=== PATIENT | male | born 1960 | race Caucasian/White ===

== ENCOUNTER 2021-12-17 10:09 | Inpatient (IN) | payer OTHER, MEDICAID ==
[~2021-12-17] VITALS: Ht 175.3 cm; Wt 119.0 kg
[~2021-12-17 10:09] MED LIST: BENA5TAB9 PO; DICL50TA2 PO; GABA-339 PO
[2021-12-17 12:02] LABS: Basophils # (auto) 0 10 ^3/uL (0-0.2); Basophils % (auto) 0.3 % (0.0-2.0); Eosinophils # (auto) 0 10 ^3/uL (0-0.8); Eosinophils % (auto) 0.5 % (0.0-7.0); Hematocrit 42.4 % (41.0-53.0); Hemoglobin 14.2 g/dL (13.5-17.5); Lymphocytes # (auto) 0.6 10 ^3/uL (0.4-5.4); Lymphocytes % (auto) 15.4 % (10.0-50.0); Mean Corpuscular Hgb Conc. 33.5 g/dL (32.0-36.0); Mean Corpuscular Volume 86.8 fL (80.0-100.0); Monocytes # (auto) 0.6 10 ^3/uL (0-1.3); Monocytes % (auto) 15.9 % (0.0-12.0); Neutrophils # (auto) 2.7 10 ^3/uL (1.6-8.6); Neutrophils % (auto) 67.9 % (37.0-80.0); Nucleated Red Blood Cells % 0.1 %; Red Blood Cells 4.88 10^6/uL (4.5-5.90); Red Cell Distribution Width 13.8 % (11.8-14.3)
[2021-12-17 12:08] LABS: Calcium 8.6 mg/dL (8.5-10.1)
[2021-12-17 12:12] LABS: BUN/Creatinine Ratio 17.2; Bilirubin, Total 0.6 mg/dL (0.2-1.0); Total Protein 6.7 g/dL (6.4-8.2)
[2021-12-17] MEDS ORDERED: cefTRIAXone 1GM/50ML D5W 50 ML IV ONE (13:45)
[2021-12-17] MEDS ORDERED: AZITHROMYCIN 250 MG TAB PO ONE (13:45)
[2021-12-17] MEDS ORDERED: ACETAMINOPHEN 325 MG TAB PO PRN (18:45)
[2021-12-17] MEDS ORDERED: DOCUSATE SOD 100 MG CAP PO PRN (18:45)
[2021-12-17] MEDS ORDERED: NITROGLYCERIN 0.4 MG SL TAB SL PRN (18:45)
[2021-12-17] MEDS ORDERED: LORazepam 0.5 MG TAB PO PRN (18:45)
[2021-12-17] MEDS ORDERED: ALBUTEROL SULF HFA 90MCG INH 200DOSE IN ONE (18:45)
[2021-12-17] MEDS ORDERED: HYDROcodone-ACET 5/325MG TAB PO PRN (18:45)
[2021-12-17] MEDS ORDERED: MORPHINE SULFATE INJECTION 2 MG/ML SYRG IV PRN (18:45)
[2021-12-17] MEDS ORDERED: REMDESIVIR PER PHARMACY 0 ML IV SCH (18:45)
[2021-12-17] MEDS ORDERED: DexAMETHasone SOD PHOS 10MG/1ML VIAL INJ IV ONE (18:45)
[2021-12-17] MEDS: ALBUTEROL SULF HFA 90MCG INH 200DOSE IN SCH (20:13)
[2021-12-17] MEDS ORDERED: REMDESIVIR 200 MG in NS 210ml LOADING DOSE ADULT IV ONE (22:00)
[2021-12-17] MEDS: GABAPENTIN 300 MG CAP PO SCH (22:30)
[2021-12-17] MEDS: ASCORBIC ACID 500 MG TAB PO SCH (22:30)
[2021-12-18] VITALS (7 sets, daily range): BP systolic 106–132; BP diastolic 62–89
[2021-12-18] MEDS ORDERED: ASPI-543 PO (05:20)
[2021-12-18] MEDS ORDERED: OMEG100078 PO (05:20)
[2021-12-18] MEDS ORDERED: FLUT1AER7 IN (05:20)
[2021-12-18] MEDS ORDERED: FURO40TA4 PO (05:20)
[2021-12-18] MEDS ORDERED: CLOP75TA70 PO (05:20)
[2021-12-18] MEDS ORDERED: CARV12.544 PO (05:20)
[2021-12-18] MEDS ORDERED: ATOR40TA52 PO (05:20)
[2021-12-18] MEDS ORDERED: CHOL20007 PO (05:20)
[2021-12-18] MEDS ORDERED: POTA10TA51 PO (05:20)
[2021-12-18] MEDS ORDERED: ALBU108A5 IN (05:20)
[2021-12-18] MEDS: GABAPENTIN 300 MG CAP PO SCH ×3 (05:44→21:31)
[2021-12-18] MEDS: ALBUTEROL SULF HFA 90MCG INH 200DOSE IN SCH ×3 (06:30→19:54)
[2021-12-18 07:01] LABS: Basophils # (auto) 0 10 ^3/uL (0-0.2); Basophils % (auto) 0.3 % (0.0-2.0); Eosinophils # (auto) 0 10 ^3/uL (0-0.8); Hematocrit 43.6 % (41.0-53.0); Hemoglobin 14.1 g/dL (13.5-17.5); Lymphocytes # (auto) 0.4 10 ^3/uL (0.4-5.4); Lymphocytes % (auto) 17.6 % (10.0-50.0); Mean Corpuscular Hemoglobin 28.5 pg (28.0-32.0); Mean Corpuscular Hgb Conc. 32.4 g/dL (32.0-36.0); Monocytes # (auto) 0.3 10 ^3/uL (0-1.3); Monocytes % (auto) 12.4 % (0.0-12.0); Neutrophils # (auto) 1.8 10 ^3/uL (1.6-8.6); Neutrophils % (auto) 69.7 % (37.0-80.0); Nucleated Red Blood Cells % 0.2 %; Red Blood Cells 4.95 10^6/uL (4.5-5.90); Red Cell Distribution Width 13.7 % (11.8-14.3); White Blood Cell 2.6 10^3/uL (4.4-10.8)
[2021-12-18 07:24] LABS: Potassium 4.3 mmol/L (3.5-5.1)
[2021-12-18 07:34] LABS: Albumin 3.1 g/dL (3.4-5.0); BUN/Creatinine Ratio 17.3; Bilirubin, Total 0.3 mg/dL (0.2-1.0); Calcium 8.8 mg/dL (8.5-10.1); Total Protein 6.9 g/dL (6.4-8.2)
[2021-12-18] MEDS: DexAMETHasone SOD PHOS 10MG/1ML VIAL INJ IV SCH (10:51)
[2021-12-18] MEDS: ASCORBIC ACID 500 MG TAB PO SCH ×2 (10:51→21:31)
[2021-12-18] MEDS: PANTOPRAZOLE 40 MG TAB PO SCH (10:51)
[2021-12-18] MEDS: CHOLECALCIFEROL (VITD3) 2,000 UNIT CAP/TAB PO SCH (10:52)
[2021-12-18] MEDS: ENOXAPARIN SOD 40 MG/0.4 ML SYRINGE SC SCH (10:52)
[2021-12-18] MEDS: ZINC SULFATE 220mg CAP or TAB PO SCH (11:12)
[2021-12-18] MEDS: REMDESIVIR 100mg 100 MG in SODIUM CHL 0.9% 230 ML IV SCH (16:12)
[2021-12-18] MEDS: cefTRIAXone 1GM/50ML D5W 50 ML IV SCH (21:00)
[2021-12-18] MEDS: AZITHROMYCIN 500MG/ 250ML 250 ML IV SCH (22:00)
[2021-12-19 04:41] VITALS: BP 108/65
[2021-12-19] MEDS: GABAPENTIN 300 MG CAP PO SCH ×3 (05:59→21:38)
[2021-12-19 06:02] LABS: Basophils # (auto) 0 10 ^3/uL (0-0.2); Basophils % (auto) 0.4 % (0.0-2.0); Eosinophils # (auto) 0 10 ^3/uL (0-0.8); Hematocrit 41.1 % (41.0-53.0); Hemoglobin 13.8 g/dL (13.5-17.5); Lymphocytes # (auto) 0.7 10 ^3/uL (0.4-5.4); Lymphocytes % (auto) 11.3 % (10.0-50.0); Mean Corpuscular Hemoglobin 29.3 pg (28.0-32.0); Mean Corpuscular Hgb Conc. 33.6 g/dL (32.0-36.0); Mean Corpuscular Volume 87.3 fL (80.0-100.0); Monocytes # (auto) 0.6 10 ^3/uL (0-1.3); Monocytes % (auto) 10.4 % (0.0-12.0); Neutrophils # (auto) 4.8 10 ^3/uL (1.6-8.6); Neutrophils % (auto) 77.9 % (37.0-80.0); Nucleated Red Blood Cells % 0.1 %; Red Blood Cells 4.71 10^6/uL (4.5-5.90); White Blood Cell 6.2 10^3/uL (4.4-10.8)
[2021-12-19 06:18] LABS: Albumin 2.7 g/dL (3.4-5.0); Calcium 8.9 mg/dL (8.5-10.1); Potassium 4.4 mmol/L (3.5-5.1)
[2021-12-19 06:22] LABS: Bilirubin, Total 0.2 mg/dL (0.2-1.0); Total Protein 6.3 g/dL (6.4-8.2)
[2021-12-19 09:00] VITALS: BP 112/63
[2021-12-19] MEDS: ZINC SULFATE 220mg CAP or TAB PO SCH (09:07)
[2021-12-19] MEDS: ENOXAPARIN SOD 40 MG/0.4 ML SYRINGE SC SCH (09:07)
[2021-12-19] MEDS: ASCORBIC ACID 500 MG TAB PO SCH ×2 (09:07→21:38)
[2021-12-19] MEDS: DexAMETHasone SOD PHOS 10MG/1ML VIAL INJ IV SCH (09:07)
[2021-12-19] MEDS: PANTOPRAZOLE 40 MG TAB PO SCH (09:07)
[2021-12-19] MEDS: CHOLECALCIFEROL (VITD3) 2,000 UNIT CAP/TAB PO SCH (09:07)
[2021-12-19] MEDS: ALBUTEROL SULF HFA 90MCG INH 200DOSE IN SCH ×2 (10:03→19:59)
[2021-12-19 13:00] VITALS: BP 109/77
[2021-12-19] MEDS: REMDESIVIR 100mg 100 MG in SODIUM CHL 0.9% 230 ML IV SCH (15:09)
[2021-12-19 17:00] VITALS: BP 135/85
[2021-12-19] MEDS: cefTRIAXone 1GM/50ML D5W 50 ML IV SCH (20:30)
[2021-12-19] MEDS: AZITHROMYCIN 500MG/ 250ML 250 ML IV SCH (21:38)
[2021-12-19 22:00] VITALS: BP 129/71
[2021-12-20 04:38] VITALS: BP 111/65
[2021-12-20] MEDS: GABAPENTIN 300 MG CAP PO SCH ×2 (05:45→14:02)
[2021-12-20 06:50] LABS: Basophils # (auto) 0 10 ^3/uL (0-0.2); Basophils % (auto) 0.1 % (0.0-2.0); Eosinophils # (auto) 0 10 ^3/uL (0-0.8); Eosinophils % (auto) 0.1 % (0.0-7.0); Hematocrit 40.5 % (41.0-53.0); Hemoglobin 13.1 g/dL (13.5-17.5); Lymphocytes # (auto) 1.1 10 ^3/uL (0.4-5.4); Lymphocytes % (auto) 15.5 % (10.0-50.0); Mean Corpuscular Hemoglobin 28.4 pg (28.0-32.0); Mean Corpuscular Hgb Conc. 32.5 g/dL (32.0-36.0); Mean Corpuscular Volume 87.5 fL (80.0-100.0); Monocytes # (auto) 0.8 10 ^3/uL (0-1.3); Monocytes % (auto) 10.5 % (0.0-12.0); Neutrophils # (auto) 5.3 10 ^3/uL (1.6-8.6); Neutrophils % (auto) 73.8 % (37.0-80.0); Nucleated Red Blood Cells % 0.1 %; Red Blood Cells 4.62 10^6/uL (4.5-5.90); Red Cell Distribution Width 14.2 % (11.8-14.3); White Blood Cell 7.2 10^3/uL (4.4-10.8)
[2021-12-20 06:52] LABS: Potassium 4.3 mmol/L (3.5-5.1)
[2021-12-20 07:02] LABS: Albumin 2.8 g/dL (3.4-5.0); BUN/Creatinine Ratio 29.2; Bilirubin, Total 0.2 mg/dL (0.2-1.0); Calcium 8.2 mg/dL (8.5-10.1); Total Protein 5.8 g/dL (6.4-8.2)
[2021-12-20] MEDS: ALBUTEROL SULF HFA 90MCG INH 200DOSE IN SCH (07:49)
[2021-12-20] MEDS: DexAMETHasone SOD PHOS 10MG/1ML VIAL INJ IV SCH (08:23)
[2021-12-20] MEDS: PANTOPRAZOLE 40 MG TAB PO SCH (08:23)
[2021-12-20] MEDS: ZINC SULFATE 220mg CAP or TAB PO SCH (08:23)
[2021-12-20] MEDS: CHOLECALCIFEROL (VITD3) 2,000 UNIT CAP/TAB PO SCH (08:24)
[2021-12-20] MEDS: ASCORBIC ACID 500 MG TAB PO SCH (08:24)
[2021-12-20] MEDS: ENOXAPARIN SOD 40 MG/0.4 ML SYRINGE SC SCH (08:24)
[2021-12-20 09:00] VITALS: BP 112/67
[2021-12-20] MEDS ORDERED: ALBUTEROL SULF HFA 90MCG INH 200DOSE IN PRN (09:30)
[2021-12-20 13:00] VITALS: BP 122/71
[2021-12-20] MEDS ORDERED: DOXY-338 PO (13:28)
[2021-12-20] MEDS ORDERED: ZINC220C8 PO (13:28)
[2021-12-20] MEDS ORDERED: ASCO500T11 PO (13:28)
[2021-12-20] MEDS ORDERED: DEXA6TAB6 PO (13:28)
[2021-12-20] MEDS: REMDESIVIR 100mg 100 MG in SODIUM CHL 0.9% 230 ML IV SCH (15:08)
[2021-12-20 16:07] VITALS: BP 122/71
[2021-12-20 16:57] VITALS: BP 131/78
== END 2021-12-20 19:16 | disposition hospice, home (50) | DRG 177 ==
LOC: ER 10:09 → TELE 18:45 → TELE-EAST 23:24
PROVIDERS: ADMIT Internal Medicine; ATTEND Internal Medicine
PROC: XW033E5 Introduction of Remdesivir Anti-infective into Peripheral Vein, Percutaneous Approach, New Technology Group 5 (ICD-10-PCS; principal; 2021-12-17)
DX: U07.1 COVID-19 (principal); J96.01 Acute respiratory failure with hypoxia; J12.82 Pneumonia due to coronavirus disease 2019; J98.11 Atelectasis; Z79.02 Long term (current) use of antithrombotics/antiplatelets; Z82.49 Family history of ischemic heart disease and other diseases of the circulatory system; Z83.3 Family history of diabetes mellitus; Z23 Encounter for immunization
CPT/HCPCS: 36415; 71046; 80053; 82728; 83880; 84484; 85025; 87040; 87426; 94640; 96365; 96367; 96375; G0378; J0696; J1100

== ENCOUNTER → 2022-12-06 | Outpatient (CLI) | payer MEDICAID ==
[~2022-12-06] MED LIST changes: +ALBU108A5 IN; +ASCO500T11 PO; +ASPI-543 PO; +ATOR40TA52 PO; -BENA5TAB9 PO; +CHOL20007 PO; +CLOP75TA70 PO; +DEXA6TAB6 PO; -DICL50TA2 PO; +DOXY-338 PO; +FLUT1AER7 IN; +OMEG100078 PO; +ZINC220C8 PO
== END | disposition home or self-care (01) ==
LOC: Rad HDHVI 15:33
PROVIDERS: ATTEND Internal Medicine Cardiovascular Disease
DX: I08.1 Rheumatic disorders of both mitral and tricuspid valves (principal); I27.21 Secondary pulmonary arterial hypertension; I25.2 Old myocardial infarction; E78.00 Pure hypercholesterolemia, unspecified
CPT/HCPCS: 93306

== ENCOUNTER → 2022-12-10 | Outpatient (CLI) | payer MEDICAID ==
[~2022-12-10] VITALS: Ht 177.8 cm; Wt 122.5 kg
[~2022-12-10] MED LIST changes: +ADENOSINE 102 MG in GIVE UN-DILUTED 0 ML IV ONE; +ADENOSINE 90 MG/30 ML INJ IV ONE
== END | disposition home or self-care (01) ==
LOC: Rad HDHVI 08:10
PROVIDERS: ATTEND Internal Medicine Cardiovascular Disease
DX: E11.9 Type 2 diabetes mellitus without complications (principal); J44.9 Chronic obstructive pulmonary disease, unspecified; R07.89 Other chest pain; I11.0 Hypertensive heart disease with heart failure; I50.9 Heart failure, unspecified; R06.02 Shortness of breath; E66.9 Obesity, unspecified; Z82.49 Family history of ischemic heart disease and other diseases of the circulatory system
CPT/HCPCS: 78452; 93005; 96374; 96375; A9500; J0153